=== PATIENT | male | born 1990 | race Caucasian/White ===

== ENCOUNTER 2017-02-08 14:09 | Emergency (ER) | payer BC ==
[2017-02-08 14:26] VITALS: BP 138/66
--- NOTE | 2017-02-08 15:02 | UC ---
Complaint Male HPI - HPI Summary HPI Summary: [age]y/o male present to the urgent care c/o burning and frequency on urination for the past week. Pt reports mid back pain is 6/10 spasmodic and sometimes radiates to the groin, specially with bending. Doesn't recall any inury or heavy lifting. He has been taking Ibuprofen PO to alleviate symptoms. Pt states he has had unprotected sexual intercourse. Pt denies fever, Hx of STD's, Hx or renal stones, lowr back pain, saddle anesthesia, numbness or tingling over the lower extremities. P - History of Current Complaint Hx Obtained From: Patient Onset/Duration: Gradual Onset, Lasting Weeks - 1 week, Still Present Timing: Intermittent, Lasting Seconds Severity Initially: Mild Severity Currently: Moderate Pain Intensity: 6 Pain Scale Used: 0-10 Numeric Location: Other - mid back Character: Burning - on urination and frequency Aggravating Factor(s): Voiding Alleviating Factor(s): Meds - Ibuprofen Associated Signs And Symptoms: Positive: Back Pain. Negative: Fever, Hematuria , Penile Swelling, Penile Discharge - Risk Factors Testicular Torsion: Negative <Dulce Araujo - Last Filed: 02/09/17 00:42> <Cheryle Parson - Last Filed: 02/09/17 08:14> - History of Current Complaint Chief Complaint: UCBackPain Stated Complaint: BURNING URINATION, PAIN IN BACK AND SIDES Time Seen by Provider: 02/08/17 14:44 - Allergies/Home Medications Allergies/Adverse Reactions: Allergies Allergy/AdvReac Type Severity Reaction Status Date / Time Sulfa Drugs Allergy Intermediate Rash Verified 02/08/17 14:26 PMH/Surg Hx/FS Hx/Imm Hx Previously Healthy: Yes - Pt denies PMHX - Surgical History Surgical History: None - Family History Family History: Asthma - Social History Occupation: Employed Full-time Lives: With Family Alcohol Use: Rare Substance Use Type: None Substance Use Comment - Amount & Last Used: rayna rea Smoking Status (MU): Never Smoked Tobacco Type: Cigarettes Amount Used/How Often: one cig per day - Immunization History Most Recent Influenza Vaccination: unknown Most Recent Tetanus Shot: unknown <Dulce Araujo - Last Filed: 02/09/17 00:42> Review of Systems Constitutional: Negative Skin: Negative Eyes: Negative ENT: Negative Respiratory: Negative Cardiovascular: Negative Gastrointestinal: Negative Genitourinary: Frequency, Other - burning on urination Motor: Negative Neurovascular: Negative Musculoskeletal: Other: - mid back pain Neurological: Negative Psychological: Negative Is Patient Immunocompromised?: No All Other Systems Reviewed And Are Negative: Yes <Dulce Araujo Filed: 02/09/17 00:42> Physical Exam Triage Information Reviewed: Yes Vital Signs: Initial Vital Signs Temp 99.0 F 02/08/17 14:21 Pulse 79 02/08/17 14:21 Resp 16 02/08/17 14:21 BP 138/66 02/08/17 14:21 Pulse Ox 100 02/08/17 14:21 - Additional Comments General: Patient is a well developed thin male without any distress that is laying comfortably in the stretcher. Skin: [place], warm, dry HEAD AND FACE: No signs of trauma. EYES: PERRLA, EOMI x 2. EARS: Hearing grossly intact. MOUTH: Oropharynx within normal limits. NECK: Supple, trachea is midline, no adenopathy, no JVD. CHEST: Symmetric, no tenderness at palpation LUNGS: CTA bilaterally, no rales, rhonchi or wheezing CVS: RRR, no murmur, rub, or gallop ABDOMEN: soft and Nontender without masses, no guarding or rebound. Bowel sounds are active. No Hepato-splenomegaly. No signs of inguinal hernias. BACK: Patient walked into the urgent care room with symmetric ambulation, No signs of limping, antalgic, able to bear weight. No signs of trauma, no soft tissue. Point tenderness over the T10-12 and paraspinal muscle tenderness at the same level with muscle spasm. No masses palpated. No CVAT, no flank ecchymosis . No sacroiliac notch tenderness, No saddle anesthesia.FROM: flexion / extension/ lateral bending and rotation, note if limited or causes pain Straight Leg Raise: negative.Patellar reflexes: brisk, symmetric Muscle strength lower extremities. Dorsiflexion/ plantar flexion of ankles. Heel/ toe walk Lower extremities: Femoral, popliteal, posterior tibial, and dorsalis pedis pulses with in normal, Rectal: Patient refused the exam. Neurological: WNL Psychological: WNL Skin: dry and warm <Dulce Araujo Filed: 02/09/17 00:42> Vital Signs: Initial Vital Signs Temp 99.0 F 02/08/17 14:21 Pulse 79 02/08/17 14:21 Resp 16 02/08/17 14:21 BP 138/66 02/08/17 14:21 Pulse Ox 100 02/08/17 14:21 <Cheryle Parson - Last Filed: 02/09/17 08:14> Complaint Male Course/Dx - Course Course Of Treatment: [age]y/o male present to the urgent care c/o burning and frequency on urination for the past week. Pt reports mid back pain is 6/10 spasmodic and sometimes radiates to the groin, specially with bending. Doesn't recall any inury or heavy lifting. He has been taking Ibuprofen PO to alleviate symptoms. Pt states he has had unprotected sexual intercourse. Pt denies fever, Hx of STD's, Hx or renal stones, lower back pain, saddle anesthesia, numbness or tingling over the lower extremities.Hx obtained. Pt with Mid paraspinal back spasm and point tenderness over T10-12 on examiantion. UA ordered to r/o UTI or hematuria, result: negative. G/C, trichomonas ordere on urine. sample sent to lab. Pt's previosu visits reviewed and he is on pain has recently Rx pain medications for back pain, testicular pain etc. I-stop consulted and cofirm on pain meds Rx recently. Pt Rx Naproxen PO, flexeril to alleviate back spasm. given PT referral, orthopedic referral if not improvemetn of symptosm. D/C instruction explained. Pt understood and agreed with plan of care. Left the clinicn ambulating and hemodynamically stable. - Differential Dx/Diagnosis Differential Diagnosis/HQI/PQRI: Prostatitis, Pyelonephritis, Ureteral Calculi, Urinary Tract Infection, Other - back pain, STD's, Provider Diagnoses: 1- Mid back pain. 2-Muscle spasm. 3- Screening for STD's <Dulce Araujo - Last Filed: 02/09/17 00:42> Discharge <Dulce Araujo - Last Filed: 02/09/17 00:42> <Cheryle Parson - Last Filed: 02/09/17 08:14> - Discharge Plan Condition: Stable Disposition: HOME Prescriptions: Cyclobenzaprine TAB* [Flexeril 10 MG TAB*] 10 mg PO TID PRN #15 tab PRN Reason: Spasms - Back Naproxen [Naproxen 500 mg] 500 mg PO Q8H PRN #20 tab PRN Reason: Pain Patient Education Materials: Sexually Transmitted Diseases (ED), Acute Low Back Pain (ED), Muscle Spasm (ED) Referrals: Debi Brown MD [Primary Care Provider] - 3 Days Additional Instructions: 1- Please take Naproxen PO as directed after meals for pain. 2- Take Flexeril PO as directed for muscle spasm. Please do not drive while taking the medication. 3- Wear a back support. Avoid strenuous exercise of heavy lifting. 4- Please follow up with Orthopedic Dr or your PCP in 1 week if not improvement of symptoms, for further management. 5- F/u with PT referral for further evaluation and treatment. 6- Urine sample sent to the lab to screen for STD's you will be notified if any abnormality 7- If you develop severe pain on urination, fever, SOB go immediately to the ER for further treatment Attestation Statement User Type: Provider - I was available for consult. This patient was seen by the [facility]. The patient was not presented to, seen by, or examined by me. -Fatemeh <Cheryle Parson - Last Filed: 02/09/17 08:14>
--- NOTE | 2017-02-09 17:52 | UC ---
Progress - Progress Note Progress Note: GC/Chlam (-) Call patient and assure sx are improving/symptoms resolved, if not please follow with PCP, [facility], ED or Emergency Department
== END 2017-02-08 15:43 | disposition home or self-care (01) ==
LOC: UCEAST 14:09
DX: M54.6 Pain in thoracic spine (principal); M62.830 Muscle spasm of back; Z11.3 Encounter for screening for infections with a predominantly sexual mode of transmission
CPT/HCPCS: 81003; 87491; 87591; 99212; G0463